=== PATIENT | male | born 1970 | race Caucasian/White ===

== ENCOUNTER 2016-12-24 07:08 | Emergency (ER) | payer SELFPAY ==
[~2016-12-24] VITALS: Ht 182.9 cm; Wt 103.8 kg
[2016-12-24 08:43] LABS: EOSINOPHIL (%) 1.2 % (0-5); EOSINOPHIL COUNT 0.1 K/uL (0-0.3); HEMATOCRIT 37.3 % (38.0-50.0); IMMATURE GRANULOCYTE (%) 0.6 % (0.0-0.7); IMMATURE GRANULOCYTE COUNT 0.1 K/uL; INSTRUMENT ABS NEUTROPHIL CT 5.5 K/uL; LYMPHOCYTE COUNT 2.1 K/uL (1.0-2.8); MCH 27.5 PG (29.0-34.0); MCHC 33.5 G/DL (30.0-36.0); MEAN PLAT.VOLUME 9.9 uM^3 (9.0-12.4); MONOCYTE COUNT 0.7 K/uL (0-0.8); NEUTROPHIL (%) 64.6 % (45-76); NEUTROPHIL COUNT 5.5 K/uL (1.8-6.4); PLATELET COUNT 218 K/uL (156-360); RBC DIS.WIDTH-CV 12.4 % (11.8-14.6); RBC DIS.WIDTH-SD 37.4 % (39-53); RED BLOOD COUNT 4.55 M/uL (4.00-5.50); WHITE BLOOD COUNT 8.5 K/uL (4.1-10.2)
[2016-12-24 08:57] LABS: CHLORIDE 102 mEq/L (99-109); POTASSIUM 3.9 mEq/L (3.7-5.4); SODIUM 136 mEq/L (136-147)
[2016-12-24 08:59] LABS: GLUCOSE 103 mg/dL (70-99)
[2016-12-24 09:00] LABS: ANION GAP 9 MEQ/L (2-14)
[2016-12-24] MEDS ORDERED: PROAIR HFA8.5 GM IH (09:01)
[2016-12-24 09:02] LABS: GFR ESTIMATE (CALCULATED) > 59 mL/min/
[2016-12-24] MEDS ORDERED: LYRICA75 MG PO (09:02)
[2016-12-24] MEDS ORDERED: AMITRIPTYLINE H25 MG PO (09:02)
[2016-12-24 09:03] LABS: UREA NITROGEN (BUN) 6 mg/dL (9-23)
[2016-12-24] MEDS ORDERED: SIMVASTATIN40 MG PO (09:03)
[2016-12-24] MEDS ORDERED: OMEPRAZOLE40 M1 PO (09:03)
[2016-12-24] MEDS ORDERED: LOSARTAN POTAS100 MG PO (09:03)
[2016-12-24] MEDS ORDERED: METHOCARBAMOL750 MG PO (09:03)
[2016-12-24] MEDS ORDERED: METOPROLOL SUC100 MG PO (09:05)
[2016-12-24] MEDS ORDERED: FLONASE16 G1 BOTH NARES (09:05)
[2016-12-24 10:41] LABS: ADD MIUA? NO; BILIRUBIN NEGATIVE; BLOOD NEGATIVE; COLOR YELLOW ((YELLOW)); GLUCOSE (STRIP) NEGATIVE; KETONES NEGATIVE; LEUKOCYTES NEGATIVE; NITRITE NEGATIVE; PROTEIN (STRIP) NEGATIVE; SPECIFIC GRAVITY 1.006 (1.000-1.030); UROBILINOGEN 0.2 MG/DL (0.2-1.0)
[2016-12-24] MEDS ORDERED: PERCOCET 5/31 TABLET PO (11:16)
[2016-12-24] MEDS ORDERED: FLEXERIL10 MG PO (11:16)
[2016-12-24 11:23] VITALS: BP 155/97
== END 2016-12-24 11:27 | disposition home or self-care (01) ==
LOC: EME 07:08
PROVIDERS: Emergency Medicine
DX: G89.29 Other chronic pain (principal); M54.5 Low back pain; R10.9 Unspecified abdominal pain; F17.200 Nicotine dependence, unspecified, uncomplicated; I10 Essential (primary) hypertension
CPT/HCPCS: 74176; 80048; 81003; 85025; 99281; 99285; J1885; J3010; J3360; J7030

== ENCOUNTER → 2017-10-03 | Outpatient (CLI) | payer OTHER ==
[~2017-10-03] MED LIST: AMITRIPTYLINE H25 MG PO; FLEXERIL10 MG PO; FLONASE16 G1 BOTH NARES; LOSARTAN POTAS100 MG PO; LYRICA75 MG PO; METHOCARBAMOL750 MG PO; METOPROLOL SUC100 MG PO; OMEPRAZOLE40 M1 PO; PERCOCET 5/31 TABLET PO; PROAIR HFA8.5 GM IH; SIMVASTATIN40 MG PO
== END | disposition home or self-care (01) ==
LOC: CDC 08:22
DX: Z13.6 Encounter for screening for cardiovascular disorders (principal)
CPT/HCPCS: 93000

== ENCOUNTER 2017-12-06 15:29 | Inpatient (IN) | payer OTHER ==
[~2017-12-06] VITALS: Ht 175.3 cm; Wt 175.0 kg
[2017-12-06] VITALS (7 sets, daily range): BP systolic 122–171; BP diastolic 89–100
[2017-12-06 16:13] LABS: HEMATOCRIT 38.3 % (38.0-50.0); HEMOGLOBIN 13.1 G/DL (12.5-16.6); MCH 27.5 PG (29.0-34.0); MCHC 34.2 G/DL (30.0-36.0); MCV 80.3 FL (86-99); PLATELET COUNT 269 K/uL (156-360); RBC DIS.WIDTH-CV 12.8 % (11.8-14.6); RBC DIS.WIDTH-SD 37.2 % (39-53); RED BLOOD COUNT 4.77 M/uL (4.00-5.50); WHITE BLOOD COUNT 16.7 K/uL (4.1-10.2)
[2017-12-06 16:24] LABS: APPEARANCE SL.HAZY ((CLEAR)); BILIRUBIN NEGATIVE; BLOOD MODERATE; COLOR YELLOW ((YELLOW)); GLUCOSE (STRIP) 50; KETONES NEGATIVE; LEUKOCYTES NEGATIVE; NITRITE NEGATIVE; PROTEIN (STRIP) 100; SPECIFIC GRAVITY 1.032 (1.000-1.030); UROBILINOGEN 0.2 MG/DL (0.2-1.0)
[2017-12-06 16:27] LABS: CHLORIDE 99 mEq/L (99-109); POTASSIUM 3.8 mEq/L (3.7-5.4); SODIUM 137 mEq/L (136-147)
[2017-12-06 16:29] LABS: GLUCOSE 176 mg/dL (70-99)
[2017-12-06 16:32] LABS: SERUM ETHYL ALCOHOL < 10 mg/dL
[2017-12-06 16:33] LABS: AMYLASE 52 IU/L (1-118); CREATININE 1.1 mg/dL (0.6-1.3); GFR ESTIMATE (CALCULATED) > 59 mL/min/ (58.99-99999)
[2017-12-06 16:40] LABS: UREA NITROGEN (BUN) 9 mg/dL (9-23)
[2017-12-06 16:42] LABS: LIPASE 51 U/L (1.0-51.0)
[2017-12-06 16:49] LABS: TROP-I INTERPRETATION NEGATIVE; TROPONIN-I < 0.01 ng/mL (0.0-0.30)
[2017-12-06 16:51] LABS: ANISOCYTOSIS 1+; ATYPICAL LYMPHOCYTE 8.8 %; EOSINOPHIL ABS CT 0.3; EOSINOPHILS 1.7 % (0-5.0); LYMPHOCYTES 14.9 % (15.0-45.0); METAMYELOCYTES 1.8 %; MONOCYTES 0.9 % (0-9.0); PLAT.SUFFICIENCY ADEQUATE; SEG.NEUTROPHILS 64.9 % (46.0-76.0)
[2017-12-06 16:54] LABS: EPITHELIAL CELLS RARE /HPF; MUCUS TRACE /LPF
[2017-12-06 16:58] LABS: RED BLOOD CELLS TNTC /HPF (0-5); WHITE BLOOD CELLS 20-30 /HPF (0-5)
[2017-12-06 16:58] LABS: CREATINE KINASE 615 IU/L (1-294)
[2017-12-06 16:59] LABS: BACTERIA 1+ /HPF; UCUL ADDED? YES
[2017-12-06 17:00] LABS: AMPHETAMINE NEGATIVE (500 ng/mL); BARBITURATES NEGATIVE (200 ng/mL); BENZODIAZEPINES NEGATIVE (150 ng/mL); BUPRENORPHINE NEGATIVE (10 ng/mL); COCAINE NEGATIVE (150 ng/mL); METHADONE PRESUMPTIVE POSITIVE (200 ng/mL); METHAMPHETAMINE NEGATIVE (500 ng/mL); OPIATES (MORPHINE) NEGATIVE (100 ng/mL); OXYCODONE NEGATIVE (100 ng/mL); PHENCYCLIDINE NEGATIVE (25 ng/mL); PROPOXYPHENE NEGATIVE (300 ng/mL); THC CANNABINOIDS NEGATIVE (50 ng/mL); TRICYCLIC ANTIDEPRESSANTS PRESUMPTIVE POSITIVE (300 ng/mL)
[2017-12-06 17:30] LABS: BASE EXCESS -4.4 mEq/L (-3 to +3); BICARBONATE 24.4 mEq/L (22-26); CARBOXY HGB 3.1 % (0-5); METHEMOGLOBIN 1.2 % (0-1.5); PCO2 61 mm Hg (35-45); PO2 284 mm Hg (80-100)
[2017-12-06 17:31] LABS: pH 7.21 (7.35-7.45)
[2017-12-06 17:32] LABS: COMMENTS - BLOOD GASES C+; DEVICE VENT; FI02 100 %; MECHANICAL RATE 14 resp/min; MODE AC; PEEP 5 CM/H20; SITE RR; TIDAL VOLUME 500 ML; TOTAL RESP RATE 15 resp/min
[2017-12-06 19:06] LABS: BASOPHIL (%) 0.2 % (0-1); EOSINOPHIL (%) 0.1 % (0-5); HEMATOCRIT 39.7 % (38.0-50.0); HEMOGLOBIN 13.2 G/DL (12.5-16.6); IMMATURE GRANULOCYTE (%) 1.2 % (0.0-0.7); LYMPHOCYTE COUNT 1.4 K/uL (1.0-2.8); MCH 26.7 PG (29.0-34.0); MCHC 33.2 G/DL (30.0-36.0); MCV 80.2 FL (86-99); MONOCYTE (%) 8.7 % (3-12); MONOCYTE COUNT 1.4 K/uL (0-0.8); NEUTROPHIL (%) 80.8 % (45-76); NEUTROPHIL COUNT 12.5 K/uL (1.8-6.4); RBC DIS.WIDTH-CV 12.9 % (11.8-14.6); RBC DIS.WIDTH-SD 37.4 % (39-53); RED BLOOD COUNT 4.95 M/uL (4.00-5.50); WHITE BLOOD COUNT 15.5 K/uL (4.1-10.2)
[2017-12-06 19:23] LABS: CHLORIDE 104 MEQ/L (99-109); CREATININE 0.8 MG/DL (0.6-1.3); GFR ESTIMATE (CALCULATED) > 59 mL/min/ (58.99-99999); MAGNESIUM 1.8 mg/dl (1.3-2.7); PHOSPHORUS 4.7 mg/dL (2.5-4.9); SODIUM 135 MEQ/L (136-147); UREA NITROGEN (BUN) 10 mg/dL (9-23)
[2017-12-06 19:26] LABS: GLUCOSE 108 mg/dL (70-99); POTASSIUM 5.3 MEQ/L (3.7-5.4)
[2017-12-06 19:34] LABS: TROP-I INTERPRETATION INDETERMINATE; TROPONIN-I 0.37 ng/mL (0.0-0.30)
[2017-12-06 19:48] LABS: INTER. NORMALIZED RATIO 1.1; PLAT.SUFFICIENCY ADEQUATE; PLATELET COUNT 200 K/uL (156-360)
[2017-12-06 19:59] LABS: PTT 18.5 SEC (25-37)
[2017-12-06 20:09] LABS: BASE EXCESS -5.5 mEq/L (-3 to +3); BICARBONATE 22.6 mEq/L (22-26); CARBOXY HGB 2.3 % (0-5); COMMENTS - BLOOD GASES C+; DEVICE 980 VENT; METHEMOGLOBIN 1.8 % (0-1.5); PCO2 54 mm Hg (35-45); PO2 97 mm Hg (80-100); SITE ALINE
[2017-12-06 20:10] LABS: FI02 60 %; MECHANICAL RATE 28 resp/min; MODE AC; PEEP 8 CM/H20; TIDAL VOLUME 400 ML; TOTAL RESP RATE 28 resp/min; pH 7.23 (7.35-7.45)
[2017-12-07] VITALS (16 sets, daily range): BP systolic 114–196; BP diastolic 60–107
[2017-12-07 00:36] LABS: BASOPHIL (%) 0.1 % (0-1); EOSINOPHIL (%) 0 % (0-5); HEMATOCRIT 40.1 % (38.0-50.0); HEMOGLOBIN 13.9 G/DL (12.5-16.6); IMMATURE GRANULOCYTE (%) 0.7 % (0.0-0.7); LYMPHOCYTE COUNT 1.2 K/uL (1.0-2.8); MCH 27.3 PG (29.0-34.0); MCHC 34.7 G/DL (30.0-36.0); MCV 78.8 FL (86-99); MONOCYTE (%) 4.6 % (3-12); MONOCYTE COUNT 0.7 K/uL (0-0.8); NEUTROPHIL (%) 86.6 % (45-76); NEUTROPHIL COUNT 13.2 K/uL (1.8-6.4); PLATELET COUNT 212 K/uL (156-360); RBC DIS.WIDTH-CV 12.9 % (11.8-14.6); RED BLOOD COUNT 5.09 M/uL (4.00-5.50); WHITE BLOOD COUNT 15.3 K/uL (4.1-10.2)
[2017-12-07 00:48] LABS: CHLORIDE 103 mEq/L (99-109); SODIUM 134 mEq/L (136-147)
[2017-12-07 00:49] LABS: MAGNESIUM 1.7 mg/dL (1.3-2.7)
[2017-12-07 00:50] LABS: GLUCOSE 186 mg/dL (70-99); POTASSIUM 3.3 mEq/L (3.7-5.4)
[2017-12-07 00:53] LABS: PHOSPHORUS 2.3 mg/dL (2.5-4.9)
[2017-12-07 00:54] LABS: CREATININE 0.6 mg/dL (0.6-1.3); GFR ESTIMATE (CALCULATED) > 59 mL/min/ (58.99-99999); UREA NITROGEN (BUN) 10 mg/dL (9-23)
[2017-12-07 00:56] LABS: INTER. NORMALIZED RATIO 1.2
[2017-12-07 00:59] LABS: PTT 27.6 SEC (25-37)
[2017-12-07 01:02] LABS: TROP-I INTERPRETATION NEGATIVE; TROPONIN-I 0.27 ng/mL (0.0-0.30)
[2017-12-07 02:39] LABS: ALBUMIN 3.9 g/dL (3.2-4.8)
[2017-12-07 02:44] LABS: TOTAL BILIRUBIN 0.7 mg/dL (0.0-1.0)
[2017-12-07 02:45] LABS: ALKALINE PHOSPHATASE 96 IU/L (3-129)
[2017-12-07 02:48] LABS: ALT (GPT) 307 IU/L (3-49); AST (GOT) 431 IU/L (2-34); DIRECT BILIRUBIN 0.4 mg/dL (0.0-0.3)
[2017-12-07 04:53] LABS: BASE EXCESS -2.8 mEq/L (-3 to +3); BICARBONATE 21.9 mEq/L (22-26); METHEMOGLOBIN 1.7 % (0-1.5); PCO2 37 mm Hg (35-45); pH 7.38 (7.35-7.45)
[2017-12-07 04:54] LABS: COMMENTS - BLOOD GASES C+; DEVICE VENT; FI02 40 %; MECHANICAL RATE 28 resp/min; MODE AC; PEEP 8 CM/H20; PO2 77 mm Hg (80-100); SITE ALINE; TIDAL VOLUME 500 ML; TOTAL RESP RATE 28 resp/min
[2017-12-07 05:39] LABS: INTER. NORMALIZED RATIO 1.1
[2017-12-07 05:39] LABS: CHLORIDE 102 mEq/L (99-109); SODIUM 135 mEq/L (136-147)
[2017-12-07 05:40] LABS: MAGNESIUM 1.6 mg/dL (1.3-2.7)
[2017-12-07 05:41] LABS: GLUCOSE 153 mg/dL (70-99)
[2017-12-07 05:42] LABS: BASOPHIL (%) 0.1 % (0-1); EOSINOPHIL (%) 0 % (0-5); HEMATOCRIT 39.3 % (38.0-50.0); HEMOGLOBIN 13.6 G/DL (12.5-16.6); IMMATURE GRANULOCYTE (%) 0.5 % (0.0-0.7); LYMPHOCYTE (%) 8.1 % (15-42); LYMPHOCYTE COUNT 1.2 K/uL (1.0-2.8); MCH 27.1 PG (29.0-34.0); MCHC 34.6 G/DL (30.0-36.0); MCV 78.4 FL (86-99); MONOCYTE (%) 7.2 % (3-12); NEUTROPHIL (%) 84.1 % (45-76); PLATELET COUNT 226 K/uL (156-360); RBC DIS.WIDTH-CV 13.1 % (11.8-14.6); RBC DIS.WIDTH-SD 37.2 % (39-53); RED BLOOD COUNT 5.01 M/uL (4.00-5.50); WHITE BLOOD COUNT 14.3 K/uL (4.1-10.2)
[2017-12-07 05:42] LABS: PTT 27.5 SEC (25-37)
[2017-12-07 05:45] LABS: CREATININE 0.6 mg/dL (0.6-1.3); GFR ESTIMATE (CALCULATED) > 59 mL/min/ (58.99-99999); PHOSPHORUS 2.3 mg/dL (2.5-4.9)
[2017-12-07 05:46] LABS: UREA NITROGEN (BUN) 9 mg/dL (9-23)
[2017-12-07 05:52] LABS: TROP-I INTERPRETATION NEGATIVE; TROPONIN-I 0.18 ng/mL (0.0-0.30)
[2017-12-07 12:04] LABS: BICARBONATE 19.8 mEq/L (22-26); CARBOXY HGB 1.8 % (0-5); METHEMOGLOBIN 1.6 % (0-1.5); PCO2 35 mm Hg (35-45); pH 7.36 (7.35-7.45)
[2017-12-07 12:05] LABS: COMMENTS - BLOOD GASES C+; DEVICE 980; FI02 30 %; MECHANICAL RATE 28 resp/min; MODE A/C; PEEP 8 CM/H20; PO2 61 mm Hg (80-100); SITE LEFT ALINE; TIDAL VOLUME 500 ML; TOTAL RESP RATE 28 resp/min
[2017-12-07 12:17] LABS: BASOPHIL (%) 0.1 % (0-1); EOSINOPHIL (%) 0.1 % (0-5); HEMATOCRIT 37.2 % (38.0-50.0); HEMOGLOBIN 12.6 G/DL (12.5-16.6); IMMATURE GRANULOCYTE (%) 0.5 % (0.0-0.7); LYMPHOCYTE (%) 9.2 % (15-42); LYMPHOCYTE COUNT 0.8 K/uL (1.0-2.8); MCH 26.7 PG (29.0-34.0); MCHC 33.9 G/DL (30.0-36.0); MCV 78.8 FL (86-99); MONOCYTE (%) 4.5 % (3-12); MONOCYTE COUNT 0.4 K/uL (0-0.8); NEUTROPHIL (%) 85.6 % (45-76); NEUTROPHIL COUNT 7.3 K/uL (1.8-6.4); NRBC (%) 0.5 /100 WBC (0-0); PLATELET COUNT 171 K/uL (156-360); RBC DIS.WIDTH-CV 12.9 % (11.8-14.6); RBC DIS.WIDTH-SD 36.7 % (39-53); RED BLOOD COUNT 4.72 M/uL (4.00-5.50); WHITE BLOOD COUNT 8.5 K/uL (4.1-10.2)
[2017-12-07 12:27] LABS: INTER. NORMALIZED RATIO 1.2
[2017-12-07 12:43] LABS: TROP-I INTERPRETATION NEGATIVE; TROPONIN-I 0.11 ng/mL (0.0-0.30)
[2017-12-07 13:02] LABS: CHLORIDE 99 MEQ/L (99-109); CREATININE 0.4 MG/DL (0.6-1.3); GFR ESTIMATE (CALCULATED) > 59 mL/min/ (58.99-99999); GLUCOSE 180 mg/dL (70-99); POTASSIUM 2.8 MEQ/L (3.7-5.4); SODIUM 131 MEQ/L (136-147); UREA NITROGEN (BUN) 9 mg/dL (9-23)
[2017-12-07 13:03] LABS: MAGNESIUM 1.5 mg/dl (1.3-2.7); PHOSPHORUS 2.9 mg/dL (2.5-4.9)
[2017-12-07 18:03] LABS: BICARBONATE 19.6 mEq/L (22-26); CARBOXY HGB 2.1 % (0-5); METHEMOGLOBIN 1.8 % (0-1.5); PCO2 38 mm Hg (35-45); PO2 72 mm Hg (80-100); SITE ALINE; pH 7.32 (7.35-7.45)
[2017-12-07 18:04] LABS: COMMENTS - BLOOD GASES C+; DEVICE 980; FI02 30 %; MECHANICAL RATE 28 resp/min; MODE AC; PEEP 8 CM/H20; TIDAL VOLUME 500 ML; TOTAL RESP RATE 28 resp/min
[2017-12-07 18:14] LABS: BASOPHIL (%) 0.1 % (0-1); EOSINOPHIL (%) 0.1 % (0-5); HEMATOCRIT 39.1 % (38.0-50.0); HEMOGLOBIN 13.3 G/DL (12.5-16.6); IMMATURE GRANULOCYTE (%) 0.6 % (0.0-0.7); LYMPHOCYTE (%) 7.7 % (15-42); LYMPHOCYTE COUNT 1.2 K/uL (1.0-2.8); MCH 26.5 PG (29.0-34.0); MCV 77.9 FL (86-99); MONOCYTE (%) 7.7 % (3-12); MONOCYTE COUNT 1.2 K/uL (0-0.8); NEUTROPHIL (%) 83.8 % (45-76); NEUTROPHIL COUNT 12.7 K/uL (1.8-6.4); RBC DIS.WIDTH-SD 36.9 % (39-53); RED BLOOD COUNT 5.02 M/uL (4.00-5.50); WHITE BLOOD COUNT 15.2 K/uL (4.1-10.2)
[2017-12-07 18:18] LABS: PLATELET COUNT 246 K/uL (156-360)
[2017-12-07 18:21] LABS: INTER. NORMALIZED RATIO 1.2
[2017-12-07 18:24] LABS: PTT 25.8 SEC (25-37)
[2017-12-07 18:26] LABS: CHLORIDE 102 MEQ/L (99-109); MAGNESIUM 1.7 mg/dl (1.3-2.7); POTASSIUM 2.8 MEQ/L (3.7-5.4); SODIUM 133 MEQ/L (136-147)
[2017-12-07 18:31] LABS: CREATININE 0.5 MG/DL (0.6-1.3); GFR ESTIMATE (CALCULATED) > 59 mL/min/ (58.99-99999); GLUCOSE 157 mg/dL (70-99); PHOSPHORUS 2.8 mg/dL (2.5-4.9); UREA NITROGEN (BUN) 8 mg/dL (9-23)
[2017-12-07 18:34] LABS: TROP-I INTERPRETATION NEGATIVE
[2017-12-08] VITALS (17 sets, daily range): BP systolic 90–172; BP diastolic 50–93
[2017-12-08 00:41] LABS: BASOPHIL (%) 0.1 % (0-1); EOSINOPHIL (%) 0.1 % (0-5); HEMATOCRIT 38.4 % (38.0-50.0); HEMOGLOBIN 13.4 G/DL (12.5-16.6); IMMATURE GRANULOCYTE (%) 0.7 % (0.0-0.7); LYMPHOCYTE (%) 7.2 % (15-42); LYMPHOCYTE COUNT 1.2 K/uL (1.0-2.8); MCH 27.1 PG (29.0-34.0); MCHC 34.9 G/DL (30.0-36.0); MCV 77.6 FL (86-99); MONOCYTE (%) 6.6 % (3-12); MONOCYTE COUNT 1.1 K/uL (0-0.8); NEUTROPHIL (%) 85.3 % (45-76); NEUTROPHIL COUNT 14.5 K/uL (1.8-6.4); PLATELET COUNT 249 K/uL (156-360); RBC DIS.WIDTH-SD 36.7 % (39-53); RED BLOOD COUNT 4.95 M/uL (4.00-5.50)
[2017-12-08 00:47] LABS: INTER. NORMALIZED RATIO 1.2
[2017-12-08 00:51] LABS: CHLORIDE 106 mEq/L (99-109); SODIUM 139 mEq/L (136-147)
[2017-12-08 00:52] LABS: MAGNESIUM 1.7 mg/dL (1.3-2.7)
[2017-12-08 00:53] LABS: GLUCOSE 183 mg/dL (70-99)
[2017-12-08 00:57] LABS: CREATININE 0.7 mg/dL (0.6-1.3); GFR ESTIMATE (CALCULATED) > 59 mL/min/ (58.99-99999); PHOSPHORUS 2.3 mg/dL (2.5-4.9)
[2017-12-08 00:58] LABS: UREA NITROGEN (BUN) 7 mg/dL (9-23)
[2017-12-08 01:02] LABS: TROP-I INTERPRETATION NEGATIVE; TROPONIN-I 0.07 ng/mL (0.0-0.30)
[2017-12-08 01:14] LABS: PTT 26.9 SEC (25-37)
[2017-12-08 04:57] LABS: BASOPHIL (%) 0.1 % (0-1); EOSINOPHIL (%) 0.1 % (0-5); HEMATOCRIT 37.4 % (38.0-50.0); HEMOGLOBIN 13.2 G/DL (12.5-16.6); IMMATURE GRANULOCYTE (%) 0.4 % (0.0-0.7); LYMPHOCYTE (%) 7.5 % (15-42); LYMPHOCYTE COUNT 1.1 K/uL (1.0-2.8); MCH 27.3 PG (29.0-34.0); MCHC 35.3 G/DL (30.0-36.0); MCV 77.3 FL (86-99); MONOCYTE COUNT 1.4 K/uL (0-0.8); NEUTROPHIL (%) 82.9 % (45-76); NEUTROPHIL COUNT 12.4 K/uL (1.8-6.4); PLATELET COUNT 216 K/uL (156-360); RBC DIS.WIDTH-CV 13.1 % (11.8-14.6); RBC DIS.WIDTH-SD 36.9 % (39-53); RED BLOOD COUNT 4.84 M/uL (4.00-5.50); WHITE BLOOD COUNT 14.9 K/uL (4.1-10.2)
[2017-12-08 05:05] LABS: INTER. NORMALIZED RATIO 1.2
[2017-12-08 05:07] LABS: PTT 26.3 SEC (25-37)
[2017-12-08 05:16] LABS: CHLORIDE 106 mEq/L (99-109); SODIUM 139 mEq/L (136-147)
[2017-12-08 05:17] LABS: MAGNESIUM 1.8 mg/dL (1.3-2.7)
[2017-12-08 05:18] LABS: GLUCOSE 146 mg/dL (70-99)
[2017-12-08 05:20] LABS: TROP-I INTERPRETATION NEGATIVE; TROPONIN-I 0.07 ng/mL (0.0-0.30)
[2017-12-08 05:21] LABS: PHOSPHORUS 1.8 mg/dL (2.5-4.9)
[2017-12-08 05:22] LABS: CREATININE 0.6 mg/dL (0.6-1.3); GFR ESTIMATE (CALCULATED) > 59 mL/min/ (58.99-99999)
[2017-12-08 05:23] LABS: UREA NITROGEN (BUN) 7 mg/dL (9-23)
[2017-12-08] MEDS ORDERED: TESTONE CI200 MG/1 M IM (10:36)
[2017-12-08] MEDS ORDERED: NEURONTIN400 MG PO (10:37)
[2017-12-08] MEDS ORDERED: METHADONE10 MG PO (10:38)
[2017-12-08 11:54] LABS: BASE EXCESS -1.7 mEq/L (-3 to +3); CARBOXY HGB 1.9 % (0-5); COMMENTS - BLOOD GASES NAC+; METHEMOGLOBIN 1.5 % (0-1.5); PCO2 38 mm Hg (35-45); PO2 61 mm Hg (80-100); SITE ALINE; pH 7.39 (7.35-7.45)
[2017-12-08 11:55] LABS: DEVICE PB 980; FI02 30 %; MECHANICAL RATE 28 resp/min; MODE AC; PEEP 8 CM/H20; TIDAL VOLUME 500 ML; TOTAL RESP RATE 28 resp/min
[2017-12-08 12:41] LABS: INTER. NORMALIZED RATIO 1.2
[2017-12-08 12:54] LABS: PTT 20.2 SEC (25-37)
[2017-12-09] VITALS (8 sets, daily range): BP systolic 120–168; BP diastolic 65–89
[2017-12-09 13:13] LABS: BASOPHIL (%) 0.5 % (0-1); EOSINOPHIL (%) 0.6 % (0-5); EOSINOPHIL COUNT 0.1 K/uL (0-0.3); HEMATOCRIT 28.4 % (38.0-50.0); IMMATURE GRANULOCYTE (%) 0.8 % (0.0-0.7); LYMPHOCYTE COUNT 1.7 K/uL (1.0-2.8); MCH 27.4 PG (29.0-34.0); MCHC 34.2 G/DL (30.0-36.0); MCV 80.2 FL (86-99); MONOCYTE (%) 11.2 % (3-12); MONOCYTE COUNT 0.9 K/uL (0-0.8); NEUTROPHIL (%) 65.9 % (45-76); NEUTROPHIL COUNT 5.3 K/uL (1.8-6.4); PLATELET COUNT 163 K/uL (156-360); RBC DIS.WIDTH-SD 40.8 % (39-53)
[2017-12-09 13:28] LABS: RED BLOOD COUNT 3.54 M/uL (4.00-5.50)
[2017-12-09 13:29] LABS: HEMOGLOBIN 9.7 G/DL (12.5-16.6)
[2017-12-09 14:06] LABS: ALKALINE PHOSPHATASE 42 IU/L (3-129); ALT (GPT) 77 IU/L (3-49); AST (GOT) 45 IU/L (2-34); CHLORIDE 111 MEQ/L (99-109); CREATININE 0.7 MG/DL (0.6-1.3); GFR ESTIMATE (CALCULATED) > 59 mL/min/ (58.99-99999); POTASSIUM 3.1 MEQ/L (3.7-5.4); SODIUM 142 MEQ/L (136-147); UREA NITROGEN (BUN) 11 mg/dL (9-23)
[2017-12-09 14:09] LABS: GLUCOSE 102 mg/dL (70-99); PHOSPHORUS 1.5 mg/dL (2.5-4.9)
[2017-12-10 04:02] VITALS: BP 133/64
[2017-12-10 05:43] LABS: BASOPHIL (%) 0.4 % (0-1); EOSINOPHIL COUNT 0.1 K/uL (0-0.3); HEMATOCRIT 25.1 % (38.0-50.0); HEMOGLOBIN 8.3 G/DL (12.5-16.6); IMMATURE GRANULOCYTE (%) 0.8 % (0.0-0.7); LYMPHOCYTE (%) 18.8 % (15-42); LYMPHOCYTE COUNT 1.4 K/uL (1.0-2.8); MCH 26.3 PG (29.0-34.0); MCHC 33.1 G/DL (30.0-36.0); MCV 79.7 FL (86-99); MONOCYTE (%) 9.3 % (3-12); MONOCYTE COUNT 0.7 K/uL (0-0.8); NEUTROPHIL (%) 69.7 % (45-76); NEUTROPHIL COUNT 5.1 K/uL (1.8-6.4); PLATELET COUNT 161 K/uL (156-360); RBC DIS.WIDTH-CV 14.1 % (11.8-14.6); RED BLOOD COUNT 3.15 M/uL (4.00-5.50); WHITE BLOOD COUNT 7.2 K/uL (4.1-10.2)
[2017-12-10 05:47] LABS: CHLORIDE 111 MEQ/L (99-109); CREATININE 0.7 MG/DL (0.6-1.3); GFR ESTIMATE (CALCULATED) > 59 mL/min/ (58.99-99999); GLUCOSE 113 mg/dL (70-99); MAGNESIUM 2.1 mg/dl (1.3-2.7); POTASSIUM 3.4 MEQ/L (3.7-5.4); SODIUM 144 MEQ/L (136-147); UREA NITROGEN (BUN) 14 mg/dL (9-23)
[2017-12-10 05:49] LABS: PHOSPHORUS 2.5 mg/dL (2.5-4.9)
[2017-12-10 07:00] VITALS: BP 131/48
[2017-12-10 16:00] VITALS: BP 138/64
[2017-12-10 17:00] VITALS: BP 135/66
[2017-12-10 18:00] VITALS: BP 139/68
[2017-12-10 20:02] VITALS: BP 128/68
[2017-12-11] VITALS (10 sets, daily range): BP systolic 118–191; BP diastolic 68–101
[2017-12-11 05:35] LABS: BASOPHIL (%) 0.5 % (0-1); EOSINOPHIL (%) 1.9 % (0-5); EOSINOPHIL COUNT 0.1 K/uL (0-0.3); HEMATOCRIT 25.6 % (38.0-50.0); HEMOGLOBIN 8.3 G/DL (12.5-16.6); IMMATURE GRANULOCYTE (%) 1.2 % (0.0-0.7); LYMPHOCYTE COUNT 1.5 K/uL (1.0-2.8); MCH 26.6 PG (29.0-34.0); MCHC 32.4 G/DL (30.0-36.0); MCV 82.1 FL (86-99); MONOCYTE (%) 10.1 % (3-12); MONOCYTE COUNT 0.8 K/uL (0-0.8); NEUTROPHIL (%) 66.3 % (45-76); PLATELET COUNT 159 K/uL (156-360); RBC DIS.WIDTH-CV 14.4 % (11.8-14.6); RBC DIS.WIDTH-SD 42.3 % (39-53); RED BLOOD COUNT 3.12 M/uL (4.00-5.50); WHITE BLOOD COUNT 7.5 K/uL (4.1-10.2)
[2017-12-11 06:11] LABS: CHLORIDE 112 MEQ/L (99-109); CREATININE 0.7 MG/DL (0.6-1.3); GFR ESTIMATE (CALCULATED) > 59 mL/min/ (58.99-99999); MAGNESIUM 2.4 mg/dl (1.3-2.7); PHOSPHORUS 3.3 mg/dL (2.5-4.9); POTASSIUM 3.5 MEQ/L (3.7-5.4); SODIUM 142 MEQ/L (136-147); UREA NITROGEN (BUN) 15 mg/dL (9-23)
[2017-12-11 06:14] LABS: GLUCOSE 83 mg/dL (70-99)
[2017-12-12] VITALS: BP 149/83
[2017-12-12 04:00] VITALS: BP 157/64
[2017-12-12 05:00] VITALS: BP 158/68
[2017-12-12 05:55] LABS: BASOPHIL (%) 0.4 % (0-1); EOSINOPHIL (%) 2.5 % (0-5); EOSINOPHIL COUNT 0.2 K/uL (0-0.3); HEMATOCRIT 27.5 % (38.0-50.0); HEMOGLOBIN 9.1 G/DL (12.5-16.6); IMMATURE GRANULOCYTE (%) 3.7 % (0.0-0.7); LYMPHOCYTE (%) 19.5 % (15-42); LYMPHOCYTE COUNT 1.3 K/uL (1.0-2.8); MCH 27.3 PG (29.0-34.0); MCHC 33.1 G/DL (30.0-36.0); MCV 82.6 FL (86-99); MONOCYTE (%) 11.4 % (3-12); MONOCYTE COUNT 0.8 K/uL (0-0.8); NEUTROPHIL (%) 62.5 % (45-76); NEUTROPHIL COUNT 4.2 K/uL (1.8-6.4); PLATELET COUNT 176 K/uL (156-360); RBC DIS.WIDTH-CV 14.4 % (11.8-14.6); RBC DIS.WIDTH-SD 42.5 % (39-53); RED BLOOD COUNT 3.33 M/uL (4.00-5.50); WHITE BLOOD COUNT 6.7 K/uL (4.1-10.2)
[2017-12-12 06:08] LABS: CHLORIDE 113 MEQ/L (99-109); CREATININE 0.7 MG/DL (0.6-1.3); GFR ESTIMATE (CALCULATED) > 59 mL/min/ (58.99-99999); MAGNESIUM 2.2 mg/dl (1.3-2.7); PHOSPHORUS 3.6 mg/dL (2.5-4.9); POTASSIUM 3.8 MEQ/L (3.7-5.4); SODIUM 146 MEQ/L (136-147); UREA NITROGEN (BUN) 17 mg/dL (9-23)
[2017-12-12 06:21] LABS: GLUCOSE 106 mg/dL (70-99)
[2017-12-12 08:57] VITALS: BP 147/87
[2017-12-12 16:00] VITALS: BP 150/62
[2017-12-13] VITALS: BP 168/70
[2017-12-13 08:02] VITALS: BP 162/86
[2017-12-13 12:02] VITALS: BP 149/78
[2017-12-13 16:02] VITALS: BP 153/75
[2017-12-14] VITALS: BP 144/72
[2017-12-14 09:18] LABS: HEMOGLOBIN 10.2 G/DL (12.5-16.6); MCH 27.3 PG (29.0-34.0); MCHC 32.9 G/DL (30.0-36.0); MCV 83.1 FL (86-99); PLATELET COUNT 206 K/uL (156-360); RBC DIS.WIDTH-CV 14.4 % (11.8-14.6); RBC DIS.WIDTH-SD 41.6 % (39-53); RED BLOOD COUNT 3.73 M/uL (4.00-5.50); WHITE BLOOD COUNT 13.9 K/uL (4.1-10.2)
[2017-12-14 09:35] LABS: CHLORIDE 109 MEQ/L (99-109); CREATININE 0.7 MG/DL (0.6-1.3); GFR ESTIMATE (CALCULATED) > 59 mL/min/ (58.99-99999); GLUCOSE 117 mg/dL (70-99); HIGH-SENS C-REACTIVE PROTEIN 7.19 MG/DL (0.02-0.20); PHOSPHORUS 4.1 mg/dL (2.5-4.9); POTASSIUM 4.3 MEQ/L (3.7-5.4); SODIUM 143 MEQ/L (136-147); UREA NITROGEN (BUN) 16 mg/dL (9-23)
[2017-12-14 16:02] VITALS: BP 144/71
[2017-12-14 20:00] VITALS: BP 137/66
[2017-12-14 22:00] VITALS: BP 137/66
[2017-12-14 23:00] VITALS: BP 116/60
[2017-12-15] VITALS (10 sets, daily range): BP systolic 113–180; BP diastolic 11–79
[2017-12-15 05:37] LABS: HEMATOCRIT 27.8 % (38.0-50.0); HEMOGLOBIN 8.9 G/DL (12.5-16.6); MCH 26.4 PG (29.0-34.0); MCV 82.5 FL (86-99); PLATELET COUNT 209 K/uL (156-360); RBC DIS.WIDTH-CV 14.5 % (11.8-14.6); RBC DIS.WIDTH-SD 42.5 % (39-53); RED BLOOD COUNT 3.37 M/uL (4.00-5.50); WHITE BLOOD COUNT 12.1 K/uL (4.1-10.2)
[2017-12-15 06:07] LABS: BASOPHIL (%) 0.4 % (0-1); BASOPHIL COUNT 0.1 K/uL (0-0.1); EOSINOPHIL (%) 2.6 % (0-5); EOSINOPHIL COUNT 0.3 K/uL (0-0.3); LYMPHOCYTE (%) 19.2 % (15-42); LYMPHOCYTE COUNT 2.3 K/uL (1.0-2.8); MONOCYTE (%) 10.5 % (3-12); MONOCYTE COUNT 1.3 K/uL (0-0.8); NEUTROPHIL (%) 65.3 % (45-76); NEUTROPHIL COUNT 7.9 K/uL (1.8-6.4)
[2017-12-15 06:14] LABS: CHLORIDE 109 MEQ/L (99-109); CREATININE 0.8 MG/DL (0.6-1.3); GFR ESTIMATE (CALCULATED) > 59 mL/min/ (58.99-99999); MAGNESIUM 2.1 mg/dl (1.3-2.7); PHOSPHORUS 5.1 mg/dL (2.5-4.9); SODIUM 145 MEQ/L (136-147); UREA NITROGEN (BUN) 20 mg/dL (9-23)
[2017-12-15 06:15] LABS: GLUCOSE 72 mg/dL (70-99); HIGH-SENS C-REACTIVE PROTEIN > 8.00 MG/DL (0.02-0.20)
[2017-12-16 00:20] LABS: BASE EXCESS 1.9 mEq/L (-3 to +3); BICARBONATE 26.6 mEq/L (22-26); CARBOXY HGB 1.9 % (0-5); METHEMOGLOBIN 1.7 % (0-1.5); PCO2 41 mm Hg (35-45); PO2 89 mm Hg (80-100); pH 7.42 (7.35-7.45)
[2017-12-16 00:21] LABS: COMMENTS - BLOOD GASES C+; DEVICE VENT; FI02 35 %; MODE SPONT; PEEP 5 CM/H20; PRES. SUPPORT 5 CM/H2O; SITE ALINE; TOTAL RESP RATE 18 resp/min
[2017-12-16 06:00] LABS: HEMOGLOBIN 8.1 G/DL (12.5-16.6); MCH 26.8 PG (29.0-34.0); MCHC 32.4 G/DL (30.0-36.0); MCV 82.8 FL (86-99); PLATELET COUNT 222 K/uL (156-360); RBC DIS.WIDTH-CV 14.3 % (11.8-14.6); RBC DIS.WIDTH-SD 42.3 % (39-53); RED BLOOD COUNT 3.02 M/uL (4.00-5.50)
[2017-12-16 06:20] LABS: CHLORIDE 107 MEQ/L (99-109); CREATININE 0.6 MG/DL (0.6-1.3); GFR ESTIMATE (CALCULATED) > 59 mL/min/ (58.99-99999); GLUCOSE 85 mg/dL (70-99); MAGNESIUM 2.2 mg/dl (1.3-2.7); PHOSPHORUS 3.6 mg/dL (2.5-4.9); POTASSIUM 3.8 MEQ/L (3.7-5.4); SODIUM 142 MEQ/L (136-147); UREA NITROGEN (BUN) 15 mg/dL (9-23)
[2017-12-16 06:31] LABS: BASOPHIL (%) 0.3 % (0-1); EOSINOPHIL (%) 2.7 % (0-5); EOSINOPHIL COUNT 0.3 K/uL (0-0.3); IMMATURE GRANULOCYTE (%) 1.6 % (0.0-0.7); LYMPHOCYTE (%) 16.5 % (15-42); LYMPHOCYTE COUNT 1.8 K/uL (1.0-2.8); MONOCYTE (%) 6.9 % (3-12); MONOCYTE COUNT 0.8 K/uL (0-0.8); NEUTROPHIL COUNT 7.9 K/uL (1.8-6.4)
[2017-12-16 11:00] VITALS: BP 143/63; BP 176/82
[2017-12-16 18:00] VITALS: BP 174/75
[2017-12-16 22:45] VITALS: BP 161/92
[2017-12-17] VITALS (16 sets, daily range): BP systolic 153–202; BP diastolic 77–121
[2017-12-17 06:00] LABS: HEMATOCRIT 26.1 % (38.0-50.0); HEMOGLOBIN 8.6 G/DL (12.5-16.6); MCH 27.3 PG (29.0-34.0); MCV 82.9 FL (86-99); PLATELET COUNT 277 K/uL (156-360); RBC DIS.WIDTH-CV 14.6 % (11.8-14.6); RBC DIS.WIDTH-SD 42.2 % (39-53); RED BLOOD COUNT 3.15 M/uL (4.00-5.50); WHITE BLOOD COUNT 10.5 K/uL (4.1-10.2)
[2017-12-17 06:25] LABS: CHLORIDE 109 MEQ/L (99-109); CREATININE 0.6 MG/DL (0.6-1.3); GFR ESTIMATE (CALCULATED) > 59 mL/min/ (58.99-99999); MAGNESIUM 2.2 mg/dl (1.3-2.7); PHOSPHORUS 3.9 mg/dL (2.5-4.9); POTASSIUM 3.7 MEQ/L (3.7-5.4); SODIUM 144 MEQ/L (136-147); UREA NITROGEN (BUN) 18 mg/dL (9-23)
[2017-12-17 06:26] LABS: GLUCOSE 120 mg/dL (70-99)
[2017-12-17 07:10] LABS: BASOPHIL (%) 0.6 % (0-1); BASOPHIL COUNT 0.1 K/uL (0-0.1); EOSINOPHIL (%) 3.2 % (0-5); EOSINOPHIL COUNT 0.3 K/uL (0-0.3); IMMATURE GRANULOCYTE (%) 1.9 % (0.0-0.7); LYMPHOCYTE (%) 21.6 % (15-42); LYMPHOCYTE COUNT 2.3 K/uL (1.0-2.8); MONOCYTE (%) 8.3 % (3-12); MONOCYTE COUNT 0.9 K/uL (0-0.8); NEUTROPHIL (%) 64.4 % (45-76); NEUTROPHIL COUNT 6.8 K/uL (1.8-6.4); PLAT.SUFFICIENCY ADEQUATE
[2017-12-18] VITALS (23 sets, daily range): BP systolic 128–198; BP diastolic 62–106
[2017-12-19] VITALS (11 sets, daily range): BP systolic 131–180; BP diastolic 66–117
[2017-12-20] VITALS (9 sets, daily range): BP systolic 128–174; BP diastolic 61–93
[2017-12-21 03:10] VITALS: BP 1360/72
[2017-12-21 07:40] VITALS: BP 149/83
[2017-12-21 07:51] LABS: BASOPHIL (%) 0.7 % (0-1); BASOPHIL COUNT 0.1 K/uL (0-0.1); EOSINOPHIL (%) 2.3 % (0-5); EOSINOPHIL COUNT 0.3 K/uL (0-0.3); HEMATOCRIT 32.8 % (38.0-50.0); LYMPHOCYTE (%) 18.9 % (15-42); LYMPHOCYTE COUNT 2.4 K/uL (1.0-2.8); MCHC 33.2 G/DL (30.0-36.0); MCV 81.2 FL (86-99); MONOCYTE (%) 9.8 % (3-12); MONOCYTE COUNT 1.2 K/uL (0-0.8); NEUTROPHIL (%) 66.3 % (45-76); NEUTROPHIL COUNT 8.4 K/uL (1.8-6.4); RBC DIS.WIDTH-CV 14.9 % (11.8-14.6); WHITE BLOOD COUNT 12.6 K/uL (4.1-10.2)
[2017-12-21 07:52] LABS: HEMOGLOBIN 10.9 G/DL (12.5-16.6); PLATELET COUNT 499 K/uL (156-360); RED BLOOD COUNT 4.04 M/uL (4.00-5.50)
[2017-12-21 08:20] LABS: CHLORIDE 103 MEQ/L (99-109); CREATININE 0.7 MG/DL (0.6-1.3); GFR ESTIMATE (CALCULATED) > 59 mL/min/ (58.99-99999); GLUCOSE 88 mg/dL (70-99); UREA NITROGEN (BUN) 24 mg/dL (9-23)
[2017-12-21 08:28] LABS: POTASSIUM 4.5 MEQ/L (3.7-5.4); SODIUM 136 MEQ/L (136-147)
[2017-12-21 11:41] VITALS: BP 136/70
[2017-12-21 16:06] VITALS: BP 143/91
[2017-12-21 20:06] VITALS: BP 136/80
[2017-12-22 00:25] VITALS: BP 138/66
[2017-12-22 08:11] VITALS: BP 135/77
[2017-12-22 13:03] VITALS: BP 126/80
[2017-12-22 20:00] VITALS: BP 134/75
[2017-12-23 01:18] VITALS: BP 134/75
[2017-12-23 05:18] VITALS: BP 133/73
[2017-12-23 07:57] VITALS: BP 122/60
[2017-12-23 16:32] VITALS: BP 109/70
[2017-12-23 20:16] VITALS: BP 129/67
[2017-12-23 23:14] VITALS: BP 101/52
[2017-12-24 06:31] LABS: BASOPHIL (%) 0.5 % (0-1); BASOPHIL COUNT 0.1 K/uL (0-0.1); EOSINOPHIL (%) 1.1 % (0-5); EOSINOPHIL COUNT 0.2 K/uL (0-0.3); HEMATOCRIT 33.7 % (38.0-50.0); IMMATURE GRANULOCYTE (%) 1.1 % (0.0-0.7); LYMPHOCYTE (%) 13.2 % (15-42); LYMPHOCYTE COUNT 2.3 K/uL (1.0-2.8); MCH 26.2 PG (29.0-34.0); MCHC 32.6 G/DL (30.0-36.0); MCV 80.2 FL (86-99); MONOCYTE (%) 10.1 % (3-12); MONOCYTE COUNT 1.8 K/uL (0-0.8); NEUTROPHIL COUNT 12.9 K/uL (1.8-6.4); PLATELET COUNT 560 K/uL (156-360); RBC DIS.WIDTH-CV 15.2 % (11.8-14.6); RBC DIS.WIDTH-SD 43.8 % (39-53); WHITE BLOOD COUNT 17.5 K/uL (4.1-10.2)
[2017-12-24 07:45] LABS: CHLORIDE 104 MEQ/L (99-109); GFR ESTIMATE (CALCULATED) 39 mL/min/ (58.99-99999); GLUCOSE 108 mg/dL (70-99); POTASSIUM 5.3 MEQ/L (3.7-5.4); SODIUM 138 MEQ/L (136-147)
[2017-12-24 07:46] LABS: UREA NITROGEN (BUN) 62 mg/dL (9-23)
[2017-12-24 09:02] VITALS: BP 164/83
[2017-12-24 16:55] VITALS: BP 145/78
[2017-12-24 23:48] LABS: APPEARANCE SL.HAZY ((CLEAR)); BILIRUBIN NEGATIVE; BLOOD NEGATIVE; COLOR YELLOW ((YELLOW)); GLUCOSE (STRIP) NEGATIVE; KETONES NEGATIVE; LEUKOCYTES TRACE; NITRITE NEGATIVE; PROTEIN (STRIP) 30; SPECIFIC GRAVITY 1.021 (1.000-1.030)
[2017-12-24 23:59] LABS: BACTERIA RARE /HPF; EPITHELIAL CELLS RARE /HPF; HYALINE CASTS 0-5 /LPF; MUCUS 1+ /LPF; RED BLOOD CELLS 0-5 /HPF (0-5); URIC ACID CRYSTALS 3+ /HPF; WHITE BLOOD CELLS 0-5 /HPF (0-5)
[2017-12-25 01:19] VITALS: BP 140/80
[2017-12-25 06:54] LABS: BASOPHIL (%) 0.5 % (0-1); BASOPHIL COUNT 0.1 K/uL (0-0.1); EOSINOPHIL (%) 0.8 % (0-5); EOSINOPHIL COUNT 0.1 K/uL (0-0.3); HEMOGLOBIN 10.9 G/DL (12.5-16.6); IMMATURE GRANULOCYTE (%) 1.3 % (0.0-0.7); MCH 27.3 PG (29.0-34.0); MCV 82.5 FL (86-99); NEUTROPHIL (%) 75.4 % (45-76); NEUTROPHIL COUNT 13.7 K/uL (1.8-6.4); PLATELET COUNT 545 K/uL (156-360); RBC DIS.WIDTH-CV 15.5 % (11.8-14.6); RBC DIS.WIDTH-SD 45.8 % (39-53); WHITE BLOOD COUNT 18.1 K/uL (4.1-10.2)
[2017-12-25 07:36] LABS: ALBUMIN 3.7 G/DL (3.2-4.8); ALKALINE PHOSPHATASE 180 IU/L (3-129); ALT (GPT) 27 IU/L (3-49); AST (GOT) 23 IU/L (2-34); CHLORIDE 107 MEQ/L (99-109); GFR ESTIMATE (CALCULATED) > 59 mL/min/ (58.99-99999); GLUCOSE 103 mg/dL (70-99); POTASSIUM 4.9 MEQ/L (3.7-5.4); SODIUM 141 MEQ/L (136-147); TOTAL BILIRUBIN 0.9 MG/DL (0.0-1.0); TOTAL PROTEIN 9.3 G/DL (6.4-8.3); UREA NITROGEN (BUN) 43 mg/dL (9-23)
[2017-12-25 07:37] LABS: CREATININE 1.1 MG/DL (0.6-1.3)
[2017-12-25 08:30] VITALS: BP 151/94
[2017-12-25 15:55] VITALS: BP 146/79
[2017-12-25 23:32] VITALS: BP 117/56
[2017-12-26 06:16] LABS: BASOPHIL (%) 0.8 % (0-1); BASOPHIL COUNT 0.1 K/uL (0-0.1); EOSINOPHIL (%) 3.3 % (0-5); EOSINOPHIL COUNT 0.5 K/uL (0-0.3); HEMATOCRIT 30.4 % (38.0-50.0); HEMOGLOBIN 9.9 G/DL (12.5-16.6); IMMATURE GRANULOCYTE (%) 1.1 % (0.0-0.7); LYMPHOCYTE (%) 20.4 % (15-42); LYMPHOCYTE COUNT 2.8 K/uL (1.0-2.8); MCH 26.8 PG (29.0-34.0); MCHC 32.6 G/DL (30.0-36.0); MCV 82.4 FL (86-99); MONOCYTE (%) 12.1 % (3-12); MONOCYTE COUNT 1.7 K/uL (0-0.8); NEUTROPHIL (%) 62.3 % (45-76); NEUTROPHIL COUNT 8.6 K/uL (1.8-6.4); PLATELET COUNT 433 K/uL (156-360); RBC DIS.WIDTH-CV 15.2 % (11.8-14.6); RBC DIS.WIDTH-SD 45.2 % (39-53); RED BLOOD COUNT 3.69 M/uL (4.00-5.50); WHITE BLOOD COUNT 13.8 K/uL (4.1-10.2)
[2017-12-26 06:40] LABS: CHLORIDE 101 MEQ/L (99-109); CREATININE 0.7 MG/DL (0.6-1.3); GFR ESTIMATE (CALCULATED) > 59 mL/min/ (58.99-99999); GLUCOSE 89 mg/dL (70-99); POTASSIUM 4.2 MEQ/L (3.7-5.4); SODIUM 135 MEQ/L (136-147)
[2017-12-26 06:42] LABS: UREA NITROGEN (BUN) 21 mg/dL (9-23)
[2017-12-26 08:10] VITALS: BP 140/79
[2017-12-26 16:05] VITALS: BP 144/88
[2017-12-26 16:57] VITALS: BP 106/64
[2017-12-26 23:30] VITALS: BP 142/81
[2017-12-27 06:36] LABS: BASOPHIL (%) 0.8 % (0-1); BASOPHIL COUNT 0.1 K/uL (0-0.1); EOSINOPHIL COUNT 0.4 K/uL (0-0.3); HEMATOCRIT 30.4 % (38.0-50.0); HEMOGLOBIN 10.2 G/DL (12.5-16.6); IMMATURE GRANULOCYTE (%) 1.4 % (0.0-0.7); LYMPHOCYTE (%) 17.6 % (15-42); LYMPHOCYTE COUNT 2.6 K/uL (1.0-2.8); MCH 26.6 PG (29.0-34.0); MCHC 33.6 G/DL (30.0-36.0); MCV 79.4 FL (86-99); MONOCYTE (%) 8.8 % (3-12); MONOCYTE COUNT 1.3 K/uL (0-0.8); NEUTROPHIL (%) 68.4 % (45-76); NEUTROPHIL COUNT 9.9 K/uL (1.8-6.4); PLATELET COUNT 440 K/uL (156-360); RBC DIS.WIDTH-CV 14.3 % (11.8-14.6); RBC DIS.WIDTH-SD 41.2 % (39-53); RED BLOOD COUNT 3.83 M/uL (4.00-5.50); WHITE BLOOD COUNT 14.5 K/uL (4.1-10.2)
[2017-12-27 06:57] LABS: CHLORIDE 97 MEQ/L (99-109); CREATININE 0.6 MG/DL (0.6-1.3); GFR ESTIMATE (CALCULATED) > 59 mL/min/ (58.99-99999); GLUCOSE 94 mg/dL (70-99); POTASSIUM 4.2 MEQ/L (3.7-5.4); SODIUM 132 MEQ/L (136-147); UREA NITROGEN (BUN) 13 mg/dL (9-23)
[2017-12-27 07:47] VITALS: BP 190/82
[2017-12-27 09:45] VITALS: BP 160/80
[2017-12-27 16:01] VITALS: BP 154/91
[2017-12-27 23:39] VITALS: BP 125/61
[2017-12-28 05:57] LABS: BASOPHIL (%) 0.6 % (0-1); BASOPHIL COUNT 0.1 K/uL (0-0.1); EOSINOPHIL COUNT 0.4 K/uL (0-0.3); HEMOGLOBIN 9.7 G/DL (12.5-16.6); IMMATURE GRANULOCYTE (%) 2.3 % (0.0-0.7); LYMPHOCYTE (%) 18.4 % (15-42); LYMPHOCYTE COUNT 2.4 K/uL (1.0-2.8); MCH 26.7 PG (29.0-34.0); MCHC 33.4 G/DL (30.0-36.0); MCV 79.9 FL (86-99); MONOCYTE (%) 9.5 % (3-12); MONOCYTE COUNT 1.2 K/uL (0-0.8); NEUTROPHIL (%) 66.2 % (45-76); NEUTROPHIL COUNT 8.5 K/uL (1.8-6.4); PLATELET COUNT 430 K/uL (156-360); RBC DIS.WIDTH-CV 14.6 % (11.8-14.6); RBC DIS.WIDTH-SD 41.8 % (39-53); RED BLOOD COUNT 3.63 M/uL (4.00-5.50); WHITE BLOOD COUNT 12.8 K/uL (4.1-10.2)
[2017-12-28 06:19] LABS: CHLORIDE 100 MEQ/L (99-109); CREATININE 0.5 MG/DL (0.6-1.3); GFR ESTIMATE (CALCULATED) > 59 mL/min/ (58.99-99999); GLUCOSE 84 mg/dL (70-99); POTASSIUM 3.9 MEQ/L (3.7-5.4); SODIUM 134 MEQ/L (136-147); UREA NITROGEN (BUN) 13 mg/dL (9-23)
[2017-12-28 08:10] VITALS: BP 161/84
[2017-12-28 15:47] VITALS: BP 142/64
[2017-12-29 01:10] VITALS: BP 167/88
[2017-12-29 07:52] VITALS: BP 170/69
[2017-12-30 00:05] VITALS: BP 132/73
[2017-12-30 08:30] VITALS: BP 126/70
[2017-12-30 16:23] VITALS: BP 116/63
[2017-12-30 23:54] VITALS: BP 115/59
[2017-12-31 05:58] LABS: BASOPHIL (%) 0.8 % (0-1); BASOPHIL COUNT 0.1 K/uL (0-0.1); EOSINOPHIL (%) 3.9 % (0-5); EOSINOPHIL COUNT 0.5 K/uL (0-0.3); HEMATOCRIT 28.2 % (38.0-50.0); HEMOGLOBIN 9.2 G/DL (12.5-16.6); IMMATURE GRANULOCYTE (%) 2.8 % (0.0-0.7); LYMPHOCYTE (%) 18.3 % (15-42); LYMPHOCYTE COUNT 2.3 K/uL (1.0-2.8); MCH 26.5 PG (29.0-34.0); MCHC 32.6 G/DL (30.0-36.0); MCV 81.3 FL (86-99); MONOCYTE (%) 10.3 % (3-12); MONOCYTE COUNT 1.3 K/uL (0-0.8); NEUTROPHIL (%) 63.9 % (45-76); PLATELET COUNT 318 K/uL (156-360); RBC DIS.WIDTH-CV 14.9 % (11.8-14.6); RBC DIS.WIDTH-SD 44.2 % (39-53); RED BLOOD COUNT 3.47 M/uL (4.00-5.50); WHITE BLOOD COUNT 12.4 K/uL (4.1-10.2)
[2017-12-31 06:35] LABS: CHLORIDE 100 MEQ/L (99-109); CREATININE 0.7 MG/DL (0.6-1.3); GFR ESTIMATE (CALCULATED) > 59 mL/min/ (58.99-99999); GLUCOSE 88 mg/dL (70-99); POTASSIUM 4.2 MEQ/L (3.7-5.4); SODIUM 132 MEQ/L (136-147); UREA NITROGEN (BUN) 14 mg/dL (9-23)
[2017-12-31 07:25] VITALS: BP 141/67
[2017-12-31 16:12] VITALS: BP 110/58
[2017-12-31 22:45] VITALS: BP 128/60
[2018-01-01 00:15] VITALS: BP 117/59
[2018-01-01 06:30] LABS: BASOPHIL (%) 0.8 % (0-1); BASOPHIL COUNT 0.1 K/uL (0-0.1); EOSINOPHIL (%) 5.5 % (0-5); EOSINOPHIL COUNT 0.5 K/uL (0-0.3); HEMATOCRIT 26.9 % (38.0-50.0); HEMOGLOBIN 8.6 G/DL (12.5-16.6); IMMATURE GRANULOCYTE (%) 3.4 % (0.0-0.7); LYMPHOCYTE (%) 21.3 % (15-42); LYMPHOCYTE COUNT 2.1 K/uL (1.0-2.8); MCH 26.7 PG (29.0-34.0); MCV 83.5 FL (86-99); MONOCYTE (%) 14.2 % (3-12); MONOCYTE COUNT 1.4 K/uL (0-0.8); NEUTROPHIL (%) 54.8 % (45-76); NEUTROPHIL COUNT 5.3 K/uL (1.8-6.4); PLATELET COUNT 301 K/uL (156-360); RBC DIS.WIDTH-CV 14.9 % (11.8-14.6); RBC DIS.WIDTH-SD 45.5 % (39-53); RED BLOOD COUNT 3.22 M/uL (4.00-5.50); WHITE BLOOD COUNT 9.7 K/uL (4.1-10.2)
[2018-01-01 07:10] LABS: CHLORIDE 102 MEQ/L (99-109); GFR ESTIMATE (CALCULATED) > 59 mL/min/ (58.99-99999); GLUCOSE 79 mg/dL (70-99); POTASSIUM 4.7 MEQ/L (3.7-5.4); SODIUM 134 MEQ/L (136-147)
[2018-01-01 07:11] LABS: UREA NITROGEN (BUN) 22 mg/dL (9-23)
[2018-01-01 08:31] VITALS: BP 121/57
[2018-01-01 16:01] VITALS: BP 117/58
[2018-01-01 23:21] VITALS: BP 125/58
[2018-01-02 07:51] VITALS: BP 108/82
[2018-01-02 15:35] VITALS: BP 134/62
[2018-01-02 23:38] VITALS: BP 119/64
[2018-01-03 06:21] LABS: BASOPHIL (%) 0.6 % (0-1); BASOPHIL COUNT 0.1 K/uL (0-0.1); EOSINOPHIL (%) 3.7 % (0-5); EOSINOPHIL COUNT 0.4 K/uL (0-0.3); HEMATOCRIT 28.9 % (38.0-50.0); HEMOGLOBIN 9.3 G/DL (12.5-16.6); IMMATURE GRANULOCYTE (%) 1.7 % (0.0-0.7); LYMPHOCYTE (%) 19.8 % (15-42); LYMPHOCYTE COUNT 2.2 K/uL (1.0-2.8); MCH 26.3 PG (29.0-34.0); MCHC 32.2 G/DL (30.0-36.0); MCV 81.6 FL (86-99); MONOCYTE (%) 11.1 % (3-12); MONOCYTE COUNT 1.2 K/uL (0-0.8); NEUTROPHIL (%) 63.1 % (45-76); NEUTROPHIL COUNT 7.1 K/uL (1.8-6.4); PLATELET COUNT 310 K/uL (156-360); RBC DIS.WIDTH-CV 14.4 % (11.8-14.6); RBC DIS.WIDTH-SD 42.6 % (39-53); RED BLOOD COUNT 3.54 M/uL (4.00-5.50); WHITE BLOOD COUNT 11.2 K/uL (4.1-10.2)
[2018-01-03 06:30] LABS: CHLORIDE 98 MEQ/L (99-109); CREATININE 0.6 MG/DL (0.6-1.3); GFR ESTIMATE (CALCULATED) > 59 mL/min/ (58.99-99999); GLUCOSE 82 mg/dL (70-99); POTASSIUM 4.1 MEQ/L (3.7-5.4); SODIUM 133 MEQ/L (136-147); UREA NITROGEN (BUN) 6 mg/dL (9-23)
[2018-01-03 07:14] LABS: IRON 30 MCG/DL (35-150); TRANSFERRIN (TIBC) 203.6 mg/dL (215-380); TRANSFERRIN SATUR. 15 % (20-55)
[2018-01-03 07:44] VITALS: BP 135/81
[2018-01-03 15:34] VITALS: BP 134/79
[2018-01-04 00:05] VITALS: BP 130/60
[2018-01-04 08:22] VITALS: BP 126/80
[2018-01-04 13:45] VITALS: BP 135/69
[2018-01-04 16:12] VITALS: BP 125/64
[2018-01-04 20:26] VITALS: BP 128/74
[2018-01-04 23:47] VITALS: BP 102/55
[2018-01-05 05:03] VITALS: BP 118/64
[2018-01-05 05:54] LABS: BASOPHIL (%) 0.4 % (0-1); EOSINOPHIL (%) 3.3 % (0-5); EOSINOPHIL COUNT 0.3 K/uL (0-0.3); HEMATOCRIT 25.7 % (38.0-50.0); HEMOGLOBIN 8.4 G/DL (12.5-16.6); IMMATURE GRANULOCYTE (%) 2.3 % (0.0-0.7); LYMPHOCYTE COUNT 2.1 K/uL (1.0-2.8); MCH 26.3 PG (29.0-34.0); MCHC 32.7 G/DL (30.0-36.0); MCV 80.6 FL (86-99); MONOCYTE (%) 10.7 % (3-12); NEUTROPHIL (%) 60.3 % (45-76); NEUTROPHIL COUNT 5.5 K/uL (1.8-6.4); PLATELET COUNT 245 K/uL (156-360); RBC DIS.WIDTH-CV 14.4 % (11.8-14.6); RBC DIS.WIDTH-SD 41.9 % (39-53); RED BLOOD COUNT 3.19 M/uL (4.00-5.50); WHITE BLOOD COUNT 9.1 K/uL (4.1-10.2)
[2018-01-05 06:30] LABS: CHLORIDE 95 MEQ/L (99-109); CREATININE 0.6 MG/DL (0.6-1.3); GFR ESTIMATE (CALCULATED) > 59 mL/min/ (58.99-99999); GLUCOSE 98 mg/dL (70-99); POTASSIUM 4.1 MEQ/L (3.7-5.4); SODIUM 130 MEQ/L (136-147); UREA NITROGEN (BUN) 9 mg/dL (9-23)
[2018-01-05 08:04] VITALS: BP 137/70
[2018-01-05 15:32] VITALS: BP 136/59
[2018-01-05 21:20] VITALS: BP 132/71
[2018-01-05 23:08] VITALS: BP 132/68
[2018-01-06 05:29] LABS: BASOPHIL (%) 0.6 % (0-1); BASOPHIL COUNT 0.1 K/uL (0-0.1); EOSINOPHIL COUNT 0.3 K/uL (0-0.3); HEMATOCRIT 28.7 % (38.0-50.0); HEMOGLOBIN 9.3 G/DL (12.5-16.6); IMMATURE GRANULOCYTE (%) 2.1 % (0.0-0.7); LYMPHOCYTE (%) 27.9 % (15-42); MCH 26.3 PG (29.0-34.0); MCHC 32.4 G/DL (30.0-36.0); MCV 81.3 FL (86-99); MONOCYTE (%) 9.6 % (3-12); NEUTROPHIL (%) 56.8 % (45-76); NEUTROPHIL COUNT 6.1 K/uL (1.8-6.4); PLATELET COUNT 274 K/uL (156-360); RBC DIS.WIDTH-CV 14.6 % (11.8-14.6); RBC DIS.WIDTH-SD 42.6 % (39-53); RED BLOOD COUNT 3.53 M/uL (4.00-5.50); WHITE BLOOD COUNT 10.7 K/uL (4.1-10.2)
[2018-01-06 06:00] LABS: CHLORIDE 97 MEQ/L (99-109); CREATININE 0.6 MG/DL (0.6-1.3); GFR ESTIMATE (CALCULATED) > 59 mL/min/ (58.99-99999); GLUCOSE 81 mg/dL (70-99); POTASSIUM 4.4 MEQ/L (3.7-5.4); SODIUM 131 MEQ/L (136-147); UREA NITROGEN (BUN) 7 mg/dL (9-23)
[2018-01-06 08:10] VITALS: BP 105/63
[2018-01-06 16:00] VITALS: BP 119/70
[2018-01-06 23:07] VITALS: BP 117/63
[2018-01-07 05:32] LABS: BASOPHIL (%) 0.3 % (0-1); EOSINOPHIL COUNT 0.2 K/uL (0-0.3); HEMATOCRIT 26.3 % (38.0-50.0); HEMOGLOBIN 8.8 G/DL (12.5-16.6); IMMATURE GRANULOCYTE (%) 1.6 % (0.0-0.7); LYMPHOCYTE (%) 21.2 % (15-42); MCHC 33.5 G/DL (30.0-36.0); MCV 80.7 FL (86-99); MONOCYTE COUNT 0.8 K/uL (0-0.8); NEUTROPHIL (%) 66.9 % (45-76); NEUTROPHIL COUNT 6.3 K/uL (1.8-6.4); PLATELET COUNT 268 K/uL (156-360); RBC DIS.WIDTH-CV 14.3 % (11.8-14.6); RBC DIS.WIDTH-SD 42.1 % (39-53); RED BLOOD COUNT 3.26 M/uL (4.00-5.50); WHITE BLOOD COUNT 9.5 K/uL (4.1-10.2)
[2018-01-07 06:05] LABS: CHLORIDE 95 MEQ/L (99-109); CREATININE 0.6 MG/DL (0.6-1.3); GFR ESTIMATE (CALCULATED) > 59 mL/min/ (58.99-99999); GLUCOSE 98 mg/dL (70-99); SODIUM 128 MEQ/L (136-147); UREA NITROGEN (BUN) 8 mg/dL (9-23)
[2018-01-07 07:42] VITALS: BP 109/67
[2018-01-07 16:07] VITALS: BP 112/68
[2018-01-07 21:00] VITALS: BP 125/67
[2018-01-07] MEDS ORDERED: BENADRYL25 MG PO (23:26)
[2018-01-07] MEDS ORDERED: DUONEB 2.5-0.5 M3 ML AEROSOL (23:28)
[2018-01-07] MEDS ORDERED: BACLOFEN10 MG PO (23:29)
[2018-01-07] MEDS ORDERED: STIOLTO RESPIMAT4 GM IH (23:29)
[2018-01-07] MEDS ORDERED: NICOTINE PATCH1 EAC1 TD (23:32)
[2018-01-07] MEDS ORDERED: PRAVASTATIN SOD80 MG PO (23:33)
[2018-01-07] MEDS ORDERED: FERROUS SULFAT325 MG PO (23:33)
[2018-01-07] MEDS ORDERED: CLONIDINE HCL0.1 MG PO (23:33)
[2018-01-07] MEDS ORDERED: VALSARTAN160 MG PO (23:34)
[2018-01-07] MEDS ORDERED: METHADONE10 MG PO (23:35)
[2018-01-07] MEDS ORDERED: OXYCODONE H5 MG/5 ML PO (23:35)
[2018-01-07] MEDS ORDERED: TYLENOL REGULA325 MG PO (23:36)
[2018-01-07] MEDS ORDERED: BISAC-EVAC10 MG PR (23:37)
[2018-01-07] MEDS ORDERED: SODIUM CHLORIDE1 G1 PO (23:37)
[2018-01-07] MEDS ORDERED: AMANTADINE100 MG PO (23:37)
[2018-01-07] MEDS ORDERED: AMITRIPTYLINE H50 MG PO (23:37)
[2018-01-07] MEDS ORDERED: DOCUSATE SODIU100 MG PO (23:38)
[2018-01-07] MEDS ORDERED: POLYETHYLENE GL17 GM PO (23:38)
[2018-01-08 00:14] VITALS: BP 116/70
[2018-01-08 05:51] LABS: BASOPHIL (%) 0.5 % (0-1); BASOPHIL COUNT 0.1 K/uL (0-0.1); EOSINOPHIL (%) 2.7 % (0-5); EOSINOPHIL COUNT 0.3 K/uL (0-0.3); HEMATOCRIT 27.8 % (38.0-50.0); HEMOGLOBIN 9.2 G/DL (12.5-16.6); IMMATURE GRANULOCYTE (%) 1.7 % (0.0-0.7); LYMPHOCYTE (%) 24.4 % (15-42); LYMPHOCYTE COUNT 2.6 K/uL (1.0-2.8); MCH 26.8 PG (29.0-34.0); MCHC 33.1 G/DL (30.0-36.0); MONOCYTE (%) 9.6 % (3-12); NEUTROPHIL (%) 61.1 % (45-76); NEUTROPHIL COUNT 6.4 K/uL (1.8-6.4); PLATELET COUNT 276 K/uL (156-360); RBC DIS.WIDTH-CV 14.4 % (11.8-14.6); RBC DIS.WIDTH-SD 42.3 % (39-53); RED BLOOD COUNT 3.43 M/uL (4.00-5.50); WHITE BLOOD COUNT 10.4 K/uL (4.1-10.2)
[2018-01-08 06:12] LABS: CHLORIDE 97 MEQ/L (99-109); CREATININE 0.6 MG/DL (0.6-1.3); GFR ESTIMATE (CALCULATED) > 59 mL/min/ (58.99-99999); GLUCOSE 83 mg/dL (70-99); POTASSIUM 4.5 MEQ/L (3.7-5.4); SODIUM 132 MEQ/L (136-147); UREA NITROGEN (BUN) 8 mg/dL (9-23)
[2018-01-08 07:53] VITALS: BP 118/70
== END 2018-01-08 12:17 | disposition designated cancer center or children's hospital (05) | DRG 207 ==
LOC: TRA 15:29 → EDOF 16:32 → 4WEST 16:32 → 3EAST 16:32 → ENRESERV 16:34 → 4WEST 17:45 → ENRESERV 12-19 17:14 → 4EAST 12-19 20:13 → ENRESERV 12-20 20:18 → 3EAST 12-20 21:27
PROVIDERS: Emergency Medicine; Family Medicine; Family Medicine Sports Medicine; Internal Medicine; Internal Medicine Critical Care Medicine
PROC: 02HV33Z Insertion of Infusion Device into Superior Vena Cava, Percutaneous Approach (ICD-10-PCS; principal; 2017-12-06)
PROC: 5A1955Z Respiratory Ventilation, Greater than 96 Consecutive Hours (ICD-10-PCS; principal; 2017-12-06)
PROC: 03HY32Z Insertion of Monitoring Device into Upper Artery, Percutaneous Approach (ICD-10-PCS; principal; 2017-12-06)
PROC: 4A133B1 Monitoring of Arterial Pressure, Peripheral, Percutaneous Approach (ICD-10-PCS; principal; 2017-12-06)
PROC: 04HY32Z Insertion of Monitoring Device into Lower Artery, Percutaneous Approach (ICD-10-PCS; 2017-12-13)
PROC: 4A133B1 Monitoring of Arterial Pressure, Peripheral, Percutaneous Approach (ICD-10-PCS; 2017-12-13)
DX: S22.5XXA Flail chest, initial encounter for closed fracture (principal); I46.8 Cardiac arrest due to other underlying condition; J69.0 Pneumonitis due to inhalation of food and vomit; J96.01 Acute respiratory failure with hypoxia; G93.1 Anoxic brain damage, not elsewhere classified; S22.059A Unspecified fracture of T5-T6 vertebra, initial encounter for closed fracture; S22.069A Unspecified fracture of T7-T8 vertebra, initial encounter for closed fracture; S27.322A Contusion of lung, bilateral, initial encounter; S27.1XXA Traumatic hemothorax, initial encounter; S27.0XXA Traumatic pneumothorax, initial encounter; W23.1XXA Caught, crushed, jammed, or pinched between stationary objects, initial encounter; F11.20 Opioid dependence, uncomplicated; E87.1 Hypo-osmolality and hyponatremia; F05 Delirium due to known physiological condition; N28.9 Disorder of kidney and ureter, unspecified; E86.0 Dehydration; D64.9 Anemia, unspecified; E78.5 Hyperlipidemia, unspecified; I10 Essential (primary) hypertension; J44.9 Chronic obstructive pulmonary disease, unspecified; J30.9 Allergic rhinitis, unspecified; F17.200 Nicotine dependence, unspecified, uncomplicated; G89.29 Other chronic pain; M54.5 Low back pain; G47.33 Obstructive sleep apnea (adult) (pediatric); Y93.89 Activity, other specified; Y92.009 Unspecified place in unspecified non-institutional (private) residence as the place of occurrence of the external cause; Z75.1 Person awaiting admission to adequate facility elsewhere; Z91.81 History of falling
CPT/HCPCS: 36600; 36620; 70450; 70486; 70551; 71045; 71250; 71260; 72125; 72129; 72132; 72170; 74177; 74230; 76604; 80048; 80048 91; 80053; 80076; 80202; 81003; 82150; 82330; 82550; 82803; 82945; 82948; 83540; 83605; 83615 91; 83690; 83735; 84100; 84145 90; 84157; 84466; 84484; 85025; 85025 91; 85027; 85610; 85730; 86141; 86850; 86900; 86901; 87040; 87070; 87077; 87086; 87186; 87205; 87641; 87801; 89051; 92507 GN; 92526 GN; 92610 GN; 92611 GN; 93005; 93306; 94002; 94003; 94640; 94640 76; 94760; 94799; 95819; 97530 GO; 97530 GP; 99202; 99281; 99285; C1751; C1894; G0480; G0515 GN; G9033; J0360; J0692; J1644; J2060; J2370; J2543; J2704; J3010; J3370; J3475; J7030; J7050; J7120; S0028